=== PATIENT | female | born 1995 | race Caucasian/White ===

== ENCOUNTER 2016-09-24 15:53 | Emergency (ER) | payer MEDICAID ==
[~2016-09-24] VITALS: Ht 165.1 cm; Wt 102.0 kg
[2016-09-24 19:02] LABS: CLARITY URINE CLOUDY (CLEAR); COLOR URINE DARK YELLOW (YELLOW); GLUCOSE URINE NEGATIVE (NEGATIVE); KETONES URINE TRACE (NEGATIVE); LEUKOCYTE ESTERASE URINE TRACE (NEGATIVE); NITRITE URINE NEGATIVE (NEGATIVE); OCCULT BLOOD URINE 3+ (NEGATIVE); PH URINE 5.5 (4.5-8.0); PROTEIN URINE TRACE (NEGATIVE); SPECIFIC GRAVITY URINE 1.036 (1.005-1.030)
[2016-09-24 19:07] LABS: *AMPHETAMINES SCREEN URINE NEGATIVE (NEGATIVE); *BARBITURATES SCREEN URINE NEGATIVE (NEGATIVE); *BENZODIAZEPINES SCREEN URINE NEGATIVE (NEGATIVE); *COCAINE SCREEN URINE NEGATIVE (NEGATIVE); METHADONE URINE SCREEN NEGATIVE (NEGATIVE); OPIATES URINE SCREEN NEGATIVE (NEGATIVE); PHENCYCLIDINE URINE SCREEN NEGATIVE (NEGATIVE)
[2016-09-24 19:12] LABS: CANNABINOID URINE SCREEN PRESUMTIVE POSITIVE (NEGATIVE)
[2016-09-24 19:15] LABS: BASOPHILS % 0.4 % (0.0-2.0); CHLORIDE 107 mEq/L (98-107); HEMATOCRIT. 39.5 % (36.0-48.0); HEMOGLOBIN. 13.4 g/dL (12.0-16.0); LYMPHOCYTES % 29.3 % (20.0-50.0); MEAN CORPUSCULAR HEMOGLOBIN 29.2 pg (28.0-32.0); MEAN PLATELET VOLUME 7.8 fl (7.4-10.4); MONOCYTES % 8.7 % (2.0-8.0); NEUTROPHILS % 55.6 % (40.0-76.0); PLATELET 350 x1000/uL (130-400); RED BLOOD CELL COUNT 4.59 mill/uL (4.2-5.4); RED CELL DISTRIBUTION WIDTH 13.7 % (11.6-14.6)
[2016-09-24 19:22] LABS: CARBON DIOXIDE 28 mEq/L (21-32)
[2016-09-24 19:26] LABS: B-HCG QUANTITATIVE < 1 mIU/mL (<3)
[2016-09-24 19:44] VITALS: BP 122/78
== END 2016-09-25 03:32 | disposition home or self-care (01) ==
LOC: ER 15:53
DX: N94.6 Dysmenorrhea, unspecified (principal); N92.6 Irregular menstruation, unspecified; K80.20 Calculus of gallbladder without cholecystitis without obstruction; M54.5 Low back pain; R03.0 Elevated blood-pressure reading, without diagnosis of hypertension; R11.2 Nausea with vomiting, unspecified; F12.90 Cannabis use, unspecified, uncomplicated
CPT/HCPCS: 36415; 80053; 80305; 81001; 81025; 83690; 84702; 85025; 86850; 86900; 99284